=== PATIENT | female | born 1960 | race Caucasian/White ===

== ENCOUNTER 2018-08-02 17:51 | Emergency (ER) | payer BC ==
[~2018-08-02] VITALS: Ht 152.4 cm; Wt 71.7 kg
--- NOTE | 2018-08-02 17:52 | NUR ---
EKG performed at BS by MERLINE Negrete. Physician given copy of EKG for review.
[2018-08-02 17:53] VITALS: BP_SYST 153
--- NOTE | 2018-08-02 17:53 | NUR ---
Patient triaged and placed in waiting room. VSS and patient appears in no acute distress at this time. Accompanied by , awaiting available bed, and MD notified of need for MSE.
--- NOTE | 2018-08-02 18:00 | NUR ---
Pt presents to ED c/o L shoulder pain x 3 wks and CP today. Pt has no acute distress noted. Pt denies other significant med hx.
[2018-08-02] MEDS ORDERED: KETOROLAC TROMETHAMINE 60 MG/2 ML VIAL IM ONE (18:30)
--- NOTE | 2018-08-02 18:30 | NUR ---
Lab at bedside for draw
--- NOTE | 2018-08-02 18:45 | NUR ---
Rad at bedside
[2018-08-02 18:55] LABS: BASOPHILS # (AUTO) 0.1 K/uL (0.0-0.2); EOSINOPHILS # (AUTO) 0.2 K/uL (0.0-0.4); EOSINOPHILS % (AUTO) 1.5 % (0.0-4.0); HEMOGLOBIN 12.3 g/dL (12.0-16.0); LYMPHOCYTES # (AUTO) 2.9 K/uL (1.0-5.5); LYMPHOCYTES % (AUTO) 28.4 % (20.5-51.5); MEAN CORPUSCULAR HEMOGLOBIN 25 pg (27-31); MEAN CORPUSCULAR HGB CONC 32 % (32-36); MEAN CORPUSCULAR VOLUME 81 fL (79.0-98.0); MONOCYTES # (AUTO) 0.8 K/uL (0.0-1.0); MONOCYTES % (AUTO) 7.4 % (1.7-9.3); NEUTROPHILS # (AUTO) 6.3 K/uL (1.8-7.7); NEUTROPHILS % (AUTO) 61.7 % (40.0-70.0); PLATELET COUNT (AUTO) 267 K/uL (130-430); RED BLOOD CELL COUNT(AUTO) 4.84 MIL/uL (4.2-6.2); WHITE BLOOD COUNT (AUTO) 10.3 K/uL (4.8-10.8)
--- NOTE | 2018-08-02 19:00 | NUR ---
report given from MARIELLE Dorsey. Patient resting in bed comfortably, will cont. to monitor.
[2018-08-02 19:04] LABS: CALCIUM 9.5 mg/dL (8.4-11.0); CREATININE 0.68 mg/dL (0.55-1.30)
[2018-08-02 19:08] LABS: ALBUMIN 3.9 g/dL (3.4-4.8); TOTAL BILIRUBIN 0.3 mg/dL (0.0-1.0)
[2018-08-02 19:37] VITALS: BP_SYST 137
--- NOTE | 2018-08-02 19:39 | NUR ---
Patient given written and verbal discharge instructions and verbalizes understanding. ER MD Dr. Jose discussed with patient the results and treatment provided. Patient in stable condition. ID arm band removed. Rx of Tramadol and Naproxen given. Patient educated on pain management and to follow up with PMD within 2-3 days. Pain Scale 0/10. Opportunity for questions provided and answered. Medication side effect fact sheet provided.
== END 2018-08-02 19:37 | disposition home or self-care (01) ==
LOC: SED 17:51
DX: M75.82 Other shoulder lesions, left shoulder (principal); R07.89 Other chest pain; R03.0 Elevated blood-pressure reading, without diagnosis of hypertension; Z88.5 Allergy status to narcotic agent; Z88.6 Allergy status to analgesic agent
CPT/HCPCS: 36415; 71045; 73030; 80053; 82550; 84484; 85025; 93005; 96372; 99285; J1885

== ENCOUNTER 2021-08-15 10:34 | Day surgery (SDC) | payer BC, SELFPAY ==
[2021-08-11 13:21] LABS: BASOPHILS # (AUTO) 0.1 K/uL (0.0-0.2); BASOPHILS % (AUTO) 0.8 % (0.0-2.0); EOSINOPHILS # (AUTO) 0.2 K/uL (0.0-0.4); EOSINOPHILS % (AUTO) 3.6 % (0.0-4.0); HEMATOCRIT 37.6 % (36-48); HEMOGLOBIN 12.1 g/dL (12.0-16.0); LYMPHOCYTES # (AUTO) 2.8 K/uL (1.0-5.5); LYMPHOCYTES % (AUTO) 40.9 % (20.5-51.5); MEAN CORPUSCULAR HEMOGLOBIN 26 pg (27-31); MEAN CORPUSCULAR HGB CONC 32 % (32-36); MEAN CORPUSCULAR VOLUME 80 fL (79.0-98.0); MONOCYTES # (AUTO) 0.7 K/uL (0.0-1.0); MONOCYTES % (AUTO) 10.1 % (1.7-9.3); NEUTROPHILS # (AUTO) 3.1 K/uL (1.8-7.7); NEUTROPHILS % (AUTO) 44.6 % (40.0-70.0); PLATELET COUNT (AUTO) 221 K/uL (130-430); RED BLOOD CELL COUNT(AUTO) 4.72 MIL/uL (4.2-6.2); RED CELL DISTRIBUTION WIDTH 15.8 % (9.0-15.0); WHITE BLOOD COUNT (AUTO) 6.9 K/uL (4.8-10.8)
[2021-08-11 13:36] LABS: PROTHROMBIN TIME 10.7 SECS (9.5-12.5)
[2021-08-11 13:48] LABS: CREATININE 0.68 mg/dL (0.55-1.30); POTASSIUM 3.8 mmol/L (3.5-5.1)
[2021-08-11 14:18] LABS: BILIRUBIN,URINE NEGATIVE (NEGATIVE); BLOOD, URINE 2+ (NEGATIVE); COLOR,URINE YELLOW (YELLOW); GLUCOSE,URINE NEGATIVE (NEGATIVE); KETONES,URINE TRACE (NEGATIVE); LEUKOCYTE ESTERASE ,URINE NEGATIVE (NEGATIVE); NITRITE, URINE NEGATIVE (NEGATIVE); PROTEIN URINE NEGATIVE (NEGATIVE); UROBILINOGEN,URINE 0.2 (0.2-1.0)
[2021-08-11 14:22] LABS: CLARITY/URINE SLIGHTLY HAZY (CLEAR)
[2021-08-11 14:33] LABS: BACTERIA,URINE FEW /HPF (None Seen); WBC,URINE 0-3 /HPF (0-3)
[2021-08-11 14:34] LABS: MUCUS,URINE 1+ /LPF (None Seen)
[~2021-08-15] VITALS: Ht 152.4 cm; Wt 70.3 kg
[2021-08-15] MEDS ORDERED: fentaNYL CITRATE/PF 100 MCG/2 ML AMP IVP ONE ×5 (11:41→13:50)
[2021-08-15] MEDS ORDERED: SEVOFLURANE 15 MIN GAS INH ONE (11:41)
[2021-08-15] MEDS ORDERED: BUPIVACAINE /EPINEPHRINE/PF 0.25% 30 ML VIAL INJ ONE (11:41)
[2021-08-15] MEDS ORDERED: MIDAZOLAM HCL 5 MG/5 ML VIAL IVP ONE (11:41)
[2021-08-15] MEDS ORDERED: NS IRRIG SOLN 1000 ML IR ONE (11:41)
[2021-08-15] MEDS ORDERED: WATER FOR IRRIGATION,STERILE 1,000 ML IRRIG.SOLN IR ONE (11:41)
[2021-08-15] MEDS ORDERED: GLYCOPYRROLATE 0.2 MG/ML VIAL IJ ONE (11:41)
[2021-08-15] MEDS ORDERED: DEXAMETHASONE SOD PHOSPHATE 4 MG/ML VIAL IVP ONE (11:41)
[2021-08-15] MEDS ORDERED: LR 1,000 ML IV.SOLN IV ONE (11:41)
[2021-08-15] MEDS ORDERED: PROPOFOL 200MG/ 20ML VIAL (DIPRIVAN) IV ONE (11:41)
[2021-08-15] MEDS ORDERED: NS 1000 ML IV.SOLN IV ONE (11:41)
[2021-08-15] MEDS ORDERED: ACETAMINOPHEN I.V. 1000 MG 100 ML IV ONE (13:11)
[2021-08-15] MEDS ORDERED: fentaNYL CITRATE/PF 100 MCG/2 ML AMP ONE (13:11)
[2021-08-15] MEDS ORDERED: ONDANSETRON HCL 4 MG/2 ML VIAL IVP ONE (13:40)
[2021-08-15] MEDS ORDERED: ONDANSETRON HCL 4 MG/2 ML VIAL ONE (13:43)
[2021-08-15] MEDS ORDERED: KETOROLAC TROMETHAMINE 30 MG VIAL ONE (14:59)
[2021-08-15] MEDS ORDERED: KETOROLAC TROMETHAMINE 30 MG VIAL IVP ONE (15:30)
[2021-08-15 16:09] VITALS: BP_SYST 140
== END 2021-08-15 16:05 | disposition home or self-care (01) ==
LOC: SDS 10:34 → SMU 10:35 → SDS 16:05
PROVIDERS: ATTEND Orthopaedic Surgery
DX: S83.281A Other tear of lateral meniscus, current injury, right knee, initial encounter (principal); M17.11 Unilateral primary osteoarthritis, right knee; X58.XXXA Exposure to other specified factors, initial encounter; Y93.89 Activity, other specified; Y92.89 Other specified places as the place of occurrence of the external cause; Y99.8 Other external cause status; Z20.822 Contact with and (suspected) exposure to COVID-19; Z79.01 Long term (current) use of anticoagulants; Z79.899 Other long term (current) drug therapy
CPT/HCPCS: 29881; 36415; 71046; 80048; 81000; 85025; 85610; 85730; J0131; J1100; J1885; J2250; J2405; J2704; J3010; J3490 ×2; J7030; J7120; U0003